=== PATIENT | female | born 1945 | race Caucasian/White ===

== ENCOUNTER 2021-08-16 13:04 | Outpatient (CLI) | payer MEDICARE, BC | END 2021-08-16 13:05 | disposition home or self-care (01) | LOC: CSHMAMMO 13:04 | PROVIDERS: ATTEND Radiology Radiation Oncology | DX: Z08 Encounter for follow-up examination after completed treatment for malignant neoplasm (principal); Z85.3 Personal history of malignant neoplasm of breast | CPT/HCPCS: 77066; G0279 ==

== ENCOUNTER 2021-11-24 12:32 | Emergency (ER) | payer MEDICARE, BC ==
[2021-11-24 14:02] LABS: #Eosinphils 0.3 10x3/uL (0.0-0.5); #Monocytes 0.4 10x3/uL (0.0-1.1); #Neutrophils 3.8 10x3/uL (1.5-8.4); %Basophils 0.7 % (0.0-2.0); %Eosinophils 4.3 % (0.0-6.0); %Lymphocytes 23.8 % (18.0-47.0); %Monocytes 6.5 % (0.0-10.0); %Neutrophils 64.5 % (40.0-75.0); Hemoglobin 11.1 g/dL (12.0-15.5); Mean Corpuscular Volume 90.8 fl (81.6-98.3); Mean Platelet Volume 9.7 fl (7.4-10.4); Platelet Count 203 10x3/uL (150-450); RBC Distribution Width 12.6 % (11.5-14.5); White Blood Cell (WBC) Count 5.8 10x3/uL (3.5-10.5)
[2021-11-24 14:12] LABS: ALT (SGPT) 12 U/L (8-55); AST (SGOT) 26 U/L (5-34); Albumin 4.3 g/dL (3.4-4.8); Alkaline Phosphatase 90 U/L (40-110); Anion Gap 14 mmol/L (10-20); BUN (Urea Nitrogen) 25 mg/dL (9.8-20.1); Bilirubin, Total 0.3 mg/dL (0.2-1.2); Calc. Creatinine Clearance 0 mL/min (70-130); Calcium 9.4 mg/dL (7.8-10.44); Carbon Dioxide 25 mmol/L (23-31); Chloride 108 mmol/L (98-107); Estimated GFR 44; Globulin 2.6 g/dL (2.4-3.5); Glucose 90 mg/dL (83-110); Potassium 4.6 mmol/L (3.5-5.1); Protein, Total 6.9 g/dL (5.8-8.1); Sodium 142 mmol/L (136-145)
[2021-11-24 16:49] LABS: Bilirubin Neg (Negative); Blood, Urine Negative (Negative); Clarity Clear (Clear); Glucose, Urine (Dipstick) Normal (Negative); Ketone, Urine Negative (Negative); Leukocyte Negative (Negative); Nitrite Negative (Negative); Protein, Urine (Dipstick) Negative (Neg-Trace); Specific Gravity, Urine 1.015 (1.002-1.036); Urobilinogen Normal mg/dL (Less than 2)
== END 2021-11-24 17:18 | disposition home or self-care (01) ==
LOC: CSHERS 12:32
DX: R53.83 Other fatigue (principal); R53.81 Other malaise; N18.4 Chronic kidney disease, stage 4 (severe); K21.9 Gastro-esophageal reflux disease without esophagitis
CPT/HCPCS: 36415; 80053; 81003; 83605; 84443; 84484; 85025; 93005

== ENCOUNTER 2022-01-29 11:36 | Outpatient (CLI) | payer MEDICARE, BC | END 2022-01-29 11:37 | disposition home or self-care (01) | LOC: CSHLAB 11:36 | PROVIDERS: ATTEND Internal Medicine | DX: Z20.822 Contact with and (suspected) exposure to COVID-19 (principal); R13.10 Dysphagia, unspecified; Z98.890 Other specified postprocedural states | CPT/HCPCS: 87811 ==

== ENCOUNTER 2022-02-02 08:48 | Outpatient (CLI) | payer MEDICARE, BC | END 2022-02-02 08:49 | disposition home or self-care (01) | LOC: CSHRAD 08:48 | PROVIDERS: ATTEND Thoracic Surgery (Cardiothoracic Vascular Surgery) | DX: R13.10 Dysphagia, unspecified (principal); T85.858A Stenosis due to other internal prosthetic devices, implants and grafts, initial encounter | CPT/HCPCS: 74220 ==

== ENCOUNTER 2022-04-03 15:05 | Outpatient (CLI) | payer MEDICARE, BC | END 2022-04-03 15:06 | disposition home or self-care (01) | LOC: CSHMRI 15:05 | PROVIDERS: ATTEND Neurological Surgery | DX: M54.12 Radiculopathy, cervical region (principal); M47.812 Spondylosis without myelopathy or radiculopathy, cervical region; M50.321 Other cervical disc degeneration at C4-C5 level; M48.02 Spinal stenosis, cervical region | CPT/HCPCS: 72141 ==

== ENCOUNTER 2022-06-18 09:38 | Outpatient (CLI) | payer MEDICARE, BC | END 2022-06-18 09:39 | disposition home or self-care (01) | LOC: CSHCT 09:38 | PROVIDERS: ATTEND Internal Medicine Gastroenterology | DX: R13.10 Dysphagia, unspecified (principal); R10.31 Right lower quadrant pain; R15.9 Full incontinence of feces; K20.90 Esophagitis, unspecified without bleeding; M47.9 Spondylosis, unspecified | CPT/HCPCS: 72193; 82565 ==